=== PATIENT | female | born 1970 | race Caucasian/White ===

== ENCOUNTER → 2017-07-20 | Outpatient (CLI) | payer OTHER ==
[2017-07-20 13:13] LABS: Basophils # (A) 0.1 k/uL (0-0.2); Basophils % (A) 1 %; Eosinophils # (A) 0.1 k/uL (0-0.7); Eosinophils % (A) 1 %; HCT 48.2 % (34.0-46.0); Lymphocytes # (A) 3.1 k/uL (1.0-4.8); Lymphocytes % (A) 30 %; MCHC 33.2 g/dL (31.0-37.0); MCV 90.4 fL (80.0-100.0); Monocytes # (A) 0.4 k/uL (0-1.0); Monocytes % (A) 4 %; Neutrophils # (A) 6.4 k/uL (1.3-7.7); Neutrophils % (A) 62 %; Platelet Count 310 k/uL (150-450); RBC 5.32 m/uL (3.80-5.40); RDW 12.9 % (11.5-15.5); WBC 10.3 k/uL (3.8-10.6)
== END | disposition home or self-care (01) ==
LOC: LABPAT 12:31
PROVIDERS: ATTEND Obstetrics & Gynecology
DX: Z01.818 Encounter for other preprocedural examination (principal); I10 Essential (primary) hypertension; N94.6 Dysmenorrhea, unspecified; N92.0 Excessive and frequent menstruation with regular cycle; Z01.812 Encounter for preprocedural laboratory examination
CPT/HCPCS: 36415; 85025; 93005

== ENCOUNTER 2017-07-26 06:59 | Day surgery (SDC) | payer OTHER ==
[2017-07-20 14:35] VITALS: BMI 35.9
[~2017-07-26 06:59] MED LIST: DEXAMETHASONE SOD PHOSPHATE 10 MG/ML 1 ML VIAL IV ONE; HYDROmorphone 0.5 MG/0.5 ML SYRINGE IVP PRN; LACTATED RINGERS 1,000 ML IV SCH; LIDOCAINE 1% 20 ML VIAL (10MG/ML) FOR IV START INTRADERMA PRN; MIDAZOLAM 2 MG/2 ML VIAL IV PRN; ONDANSETRON 4 MG/2 ML VIAL IVP ONE; SCOPOLAMINE 1.5MG/72HR PATCH TRANSDERM ONE
[2017-07-26 08:01] LABS: Glucose,Whole Blood 353 mg/dL (75-99)
[2017-07-26 08:01] LABS: Glucose,Whole Blood 331 mg/dL (75-99)
[2017-07-26] MEDS ORDERED: INSULIN ASPART 100 UNIT/ML 1 ML 10 ML VIAL SQ ONE ×2 (08:04→09:16)
[2017-07-26] MEDS ORDERED: KETOROLAC 30 MG/ML 1 ML VIAL ONE (08:29)
[2017-07-26] MEDS ORDERED: fentaNYL (PF) 50 MCG/ML 2 ML AMP ONE (08:29)
[2017-07-26] MEDS ORDERED: MIDAZOLAM 2 MG/2 ML VIAL ONE (08:29)
[2017-07-26] MEDS ORDERED: LIDOCAINE 1% INJ 10MG/ML (20 ML MDV) ONE (08:29)
[2017-07-26] MEDS ORDERED: PROPOFOL 10 MG/ML 20 ML VIAL IV ONE (08:29)
--- NOTE | 2017-07-26 08:54 | P.OP ---
Date of Procedure: 07/26/17 Preoperative Diagnosis: Menorrhagia, dysmenorrhea Postoperative Diagnosis: Same, grade 3-4 rectocele. Procedure(s) Performed: Hysteroscopy, NovaSure endometrial ablation Anesthesia: JAYNEA Surgeon: Malissa Lyn Estimated Blood Loss (ml): 5 IV fluids (ml): 400 Urine output (ml): 200 Pathology: none sent Condition: stable Disposition: PACU Description of Procedure: Patient is brought to the operating suite where a general anesthetic is administered without difficulty. She's placed in the dorsal lithotomy position. The cervix, vagina, perineum and periurethral areas are all prepped and draped in usual sterile fashion. Preoperative blood sugar 353, covered with 4 units of NovoLog insulin per the anesthesia staff. Urine hCG negative. The appropriate timeout is performed to assure proper patient and procedural identification. Examination under anesthesia reveals an anteverted uterus that is bulky and enlarged, negative adnexa bilaterally. Weighted speculum was placed into the vagina. Bladder is drained for 200 mL of clear yellow urine. Anterior lip of the cervix is grasped with a double-tooth tenaculum and the uterus sounds to a depth of 10.5 cm. Cervical length 3 cm. There is a grade 3-4 rectocele noted. The cervix was gently and systematically dilated using Hanks dilators to 20- [place]. Hysteroscope was placed and the cavity is distended with saline. Inspection of the cavity reveals bilateral ostia within normal limits, no obvious intrauterine polyps or fibroids, a fair amount of proliferative appearing shaggy tissue is noted. Hysteroscope was removed. NovaSure wand is then properly seated and calibrated. Uterine length of 6.5 cm , width of 4.7 cm is noted. The machine is properly enabled. For 83 seconds with a power of 168 W the procedure is carried out. When the machine shuts off the wand is reduced and removed. Hysteroscope was once again introduced and the cavity is noted to be freely and uniformly blanched. All sponge needle and enhancement counts are correct at the end of the procedure. Patient is brought back to recovery room in very good condition with stable vital signs including blood pressure 147/90, pulse 68. Blood sugar will be checked again in the recovery room. Toradol is given prior to leaving the operative suite. Patient will follow-up with me in the office in 2 weeks, written instructions are provided.
[2017-07-26 09:07] VITALS: TEMP 96.9
[2017-07-26 09:14] LABS: Glucose,Whole Blood 296 mg/dL (75-99)
[2017-07-26 09:46] LABS: Glucose,Whole Blood 290 mg/dL (75-99)
[2017-07-26 10:04] VITALS: PULSE 70
[2017-07-26 10:15] VITALS: BP 136/101; RESP 16
== END 2017-07-26 10:31 | disposition home or self-care (01) ==
LOC: OR 06:59
PROVIDERS: ATTEND Obstetrics & Gynecology
DX: N92.0 Excessive and frequent menstruation with regular cycle (principal); N94.6 Dysmenorrhea, unspecified; N81.6 Rectocele; N94.10 Unspecified dyspareunia; N85.2 Hypertrophy of uterus; E11.9 Type 2 diabetes mellitus without complications; I10 Essential (primary) hypertension; F17.210 Nicotine dependence, cigarettes, uncomplicated; K21.9 Gastro-esophageal reflux disease without esophagitis; Z79.84 Long term (current) use of oral hypoglycemic drugs; Z79.899 Other long term (current) drug therapy; Z83.3 Family history of diabetes mellitus; Z82.49 Family history of ischemic heart disease and other diseases of the circulatory system; Z98.51 Tubal ligation status
CPT/HCPCS: 58563; 81025; J2250; J1100; J2405; J2001; J3010; J1885; J2704

== ENCOUNTER 2018-09-06 14:27 | Observation (INO) | payer OTHER ==
[2018-09-06] MEDS ORDERED: ASPIRIN 81 MG PO STA (14:46)
--- NOTE | 2018-09-06 14:52 | ED ---
General Adult HPI - General Chief complaint: Chest Pain Stated complaint: Cardiac Issues Time Seen by Provider: 09/06/18 14:35 Source: patient, EMS, RN notes reviewed Mode of arrival: EMS Limitations: no limitations - History of Present Illness Initial comments: Patient's a 48-year-old female presented to the emergency room today with a chief complaint of heart palpitations and chest pain. Patient states that over the last month she's been having episodes. She states that she's noticed that it seems to be worse when she is up moving around doing things. His examples that when she went to the grocery store. Also another episode when she was doi ng some laundry. She states that when she has pain she has a sharp pain on the left and right sides. She states she has felt some radiation to the left shoulder and up the left neck. Patient states she is not experiencing any pain at this time. Patient states that she went for a routine follow-up with her family doctor today for elevated blood sugars and was recently started on insulin. She states she was discussing some of the symptoms was advised come here to the emergency room for further evaluation. Patient does admit that the chest pain resolves when she sits down and relax. She denies any other complaints at this time. Patient denies any recent fever, chills, shortness of breath, back pain, abdominal pain, nausea or vomiting, headaches or visual changes, or any other complaints. - Related Data Home Medications Medication Instructions Recorded Confirmed Citalopram Hydrobromide [CeleXA] 40 mg PO QAM 07/20/17 07/26/17 Lisinopril [Zestril] 10 mg PO QAM 07/20/17 07/26/17 Omeprazole 40 mg PO QAM 07/20/17 07/26/17 Aspirin EC [Ecotrin Low Dose] 81 mg PO DAILY 09/06/18 09/06/18 Atorvastatin [Lipitor] 80 mg PO HS 09/06/18 09/06/18 Insulin Glargine,Hum.rec.anlog 22 unit SQ 09/06/18 09/06/18 [Basaglar Kwikpen U-100] sitaGLIPtin PHOS/metFORMIN HCL 1 tab PO BID 09/06/18 09/06/18 [Janumet 50-1,000 mg Tablet] Allergies Allergy/AdvReac Type Severity Reaction Status Date / Time mold Allergy Swelling Verified 09/06/18 16:23 Review of Systems ROS Statement: Those systems with pertinent positive or pertinent negative responses have been documented in the HPI. ROS Other: All systems not noted in ROS Statement are negative. Past Medical History Past Medical History: COPD, Diabetes Mellitus, GERD/Reflux, Hyperlipidemia, Hypertension, Osteoarthritis (OA) Additional Past Medical History / Comment(s): Barretts, NIDDM. History of Any Multi-Drug Resistant Organisms: None Reported Past Surgical History: Section, Cholecystectomy, Tubal Ligation Additional Past Surgical History / Comment(s): Section X2. Past Anesthesia/Blood Transfusion Reactions: Family History of Problems w/ Anesthesia Additional Past Anesthesia/Blood Transfusion Reaction / Comment(s): Mother with PONV. Past Psychological History: Anxiety Smoking Status: Former smoker Past Alcohol Use History: None Reported Past Drug Use History: None Reported - Past Family History Mother Family Medical History: No Reported History General Exam - General Exam Comments Initial Comments: General: The patient is awake and alert, in no distress, and does not appear acutely ill. Eye: There is normal conjunctiva bilaterally. No signs of icterus. Ears, nose, mouth and throat: There are moist mucous membranes and no oral lesions. Neck: The neck is supple, there is no tenderness or JVD. Cardiovascular: There is a regular rate and rhythm. No murmur, rub or gallop is appreciated. Respiratory: Lungs are clear to auscultation, respirations are non-labored, breath sounds are equal. No wheezes, stridor, rales, or rhonchi. Musculoskeletal: Normal ROM, no tenderness. Strength 5/5. Sensation intact. Pulses equal bilaterally 2+. Neurological: A&O x 3. CN II-XII intact, There are no obvious motor or sensory deficits. Coordination appears grossly intact. Speech is normal. Skin: Skin is warm and dry and no rashes or lesions are noted. Psychiatric: Cooperative, appropriate mood & affect, normal judgment. Limitations: no limitations Course Vital Signs 09/06/18 14:29 Temperature 97.6 F Pulse Rate 71 Respiratory 18 Rate Blood Pressure 142/88 O2 Sat by Pulse 96 Oximetry EKG Findings - EKG Comments: EKG Findings:: EKG performed at 1459: Shows normal sinus rhythm at 69 bpm. ID interval 144. QRS 88. QT/QTC 390/417. No acute issue change. Medical Decision Making - Medical Decision Making 48-year-old female presented to the emergency room today with chief complaint of exertional angina. Patient's chest x-rays unremarkable. Resting comfortably at this time. Initial troponin negative. Case discussed with attending physician Dr. Kapoor. Discussed case with with nurse practitioner Dakotah Jones who will accept admission for Dr. Trevino and we will consult cardiology. Patient is aware the plan. - Lab Data Result diagrams: 09/06/18 15:10 09/06/18 15:10 Lab Results 09/06/18 09/06/18 09/06/18 Range/Units 15:10 15:10 15:10 WBC 10.1 (3.8-10.6) k/uL RBC 5.21 (3.80-5.40) m/uL Hgb 15.6 (11.4-16.0) gm/dL Hct 47.4 H (34.0-46.0) % MCV 91.1 (80.0-100.0) fL MCH 29.9 (25.0-35.0) pg MCHC 32.8 (31.0-37.0) g/dL RDW 13.8 (11.5-15.5) % Plt Count 335 (150-450) k/uL Neutrophils % 61 % Lymphocytes % 27 % Monocytes % 6 % Eosinophils % 3 % Basophils % 1 % Neutrophils # 6.1 (1.3-7.7) k/uL Lymphocytes # 2.7 (1.0-4.8) k/uL Monocytes # 0.7 (0-1.0) k/uL Eosinophils # 0.3 (0-0.7) k/uL Basophils # 0.1 (0-0.2) k/uL PT 9.6 (9.0-12.0) sec INR 0.9 (<1.2) APTT 23.7 (22.0-30.0) sec Sodium 138 (137-145) mmol/L Potassium 4.3 (3.5-5.1) mmol/L Chloride 106 (98-107) mmol/L Carbon Dioxide 26 (22-30) mmol/L Anion Gap 6 mmol/L BUN 11 (7-17) mg/dL Creatinine 0.57 (0.52-1.04) mg/dL Est GFR (CKD-EPI)AfAm >90 (>60 ml/min/1.73 sqM) Est GFR (CKD-EPI)NonAf >90 (>60 ml/min/1.73 sqM) Glucose 179 H (74-99) mg/dL Calcium 9.6 (8.4-10.2) mg/dL Magnesium 1.8 (1.6-2.3) mg/dL Total Bilirubin 0.4 (0.2-1.3) mg/dL AST 23 (14-36) U/L ALT 41 (9-52) U/L Alkaline Phosphatase 65 (38-126) U/L Troponin I (0.000-0.034) ng/mL Total Protein 6.9 (6.3-8.2) g/dL Albumin 4.0 (3.5-5.0) g/dL 09/06/18 Range/Units 15:10 WBC (3.8-10.6) k/uL RBC (3.80-5.40) m/uL Hgb (11.4-16.0) gm/dL Hct (34.0-46.0) % MCV (80.0-100.0) fL MCH (25.0-35.0) pg MCHC (31.0-37.0) g/dL RDW (11.5-15.5) % Plt Count (150-450) k/uL Neutrophils % % Lymphocytes % % Monocytes % % Eosinophils % % Basophils % % Neutrophils # (1.3-7.7) k/uL Lymphocytes # (1.0-4.8) k/uL Monocytes # (0-1.0) k/uL Eosinophils # (0-0.7) k/uL Basophils # (0-0.2) k/uL PT (9.0-12.0) sec INR (<1.2) APTT (22.0-30.0) sec Sodium (137-145) mmol/L Potassium (3.5-5.1) mmol/L Chloride (98-107) mmol/L Carbon Dioxide (22-30) mmol/L Anion Gap mmol/L BUN (7-17) mg/dL Creatinine (0.52-1.04) mg/dL Est GFR (CKD-EPI)AfAm (>60 ml/min/1.73 sqM) Est GFR (CKD-EPI)NonAf (>60 ml/min/1.73 sqM) Glucose (74-99) mg/dL Calcium (8.4-10.2) mg/dL Magnesium (1.6-2.3) mg/dL Total Bilirubin (0.2-1.3) mg/dL AST (14-36) U/L ALT (9-52) U/L Alkaline Phosphatase (38-126) U/L Troponin I <0.012 (0.000-0.034) ng/mL Total Protein (6.3-8.2) g/dL Albumin (3.5-5.0) g/dL Critical Care Time Critical Care Time: Yes Total Critical Care Time: 35 Critical Care Time: Patient reexamined at this time showing no signs of distress. She is resting comfortably. Patient's initial troponin is negative. She was given aspirin here in the emergency room. Patient started on heparin. Initial EKG unremarkable. Patient will be admitted for serial cardiac enzymes and cardiology has been consulted. Disposition Clinical Impression: Chest pain Disposition: HOME SELF-CARE Condition: Good Is patient prescribed a controlled substance at d/c from ED?: No Referrals: Marni Hearn MD [Primary Care Provider] - 1-2 days Time of Disposition: 16:39
[2018-09-06 15:33] LABS: Basophils # (A) 0.1 k/uL (0-0.2); Basophils % (A) 1 %; Eosinophils # (A) 0.3 k/uL (0-0.7); Eosinophils % (A) 3 %; HCT 47.4 % (34.0-46.0); HGB 15.6 gm/dL (11.4-16.0); Lymphocytes # (A) 2.7 k/uL (1.0-4.8); Lymphocytes % (A) 27 %; MCH 29.9 pg (25.0-35.0); MCHC 32.8 g/dL (31.0-37.0); MCV 91.1 fL (80.0-100.0); Mean Platelet Volume 6.3; Monocytes # (A) 0.7 k/uL (0-1.0); Monocytes % (A) 6 %; Neutrophils # (A) 6.1 k/uL (1.3-7.7); Neutrophils % (A) 61 %; Platelet Count 335 k/uL (150-450); RBC 5.21 m/uL (3.80-5.40); RDW 13.8 % (11.5-15.5); WBC 10.1 k/uL (3.8-10.6)
[2018-09-06 15:34] LABS: ALT 41 U/L (9-52); AST 23 U/L (14-36); Alkaline Phosphatase 65 U/L (38-126); Anion Gap 6 mmol/L; Blood Urea Nitrogen 11 mg/dL (7-17); Calcium 9.6 mg/dL (8.4-10.2); Carbon Dioxide 26 mmol/L (22-30); Chloride 106 mmol/L (98-107); Glucose 179 mg/dL (74-99); Magnesium 1.8 mg/dL (1.6-2.3); Potassium 4.3 mmol/L (3.5-5.1); Sodium 138 mmol/L (137-145); Total Bilirubin 0.4 mg/dL (0.2-1.3); Total Protein 6.9 g/dL (6.3-8.2)
[2018-09-06 15:38] LABS: INR 0.9 (<1.2); Partial Thromboplastin Time 23.7 sec (22.0-30.0); Prothrombin Time 9.6 sec (9.0-12.0)
--- NOTE | 2018-09-06 15:48 | XR ---
EXAMINATION TYPE: XR chest 2V DATE OF EXAM: 09/06/2018 COMPARISON: NONE HISTORY: Chest pain and pressure TECHNIQUE: Frontal and lateral views of the chest are obtained. FINDINGS: There is no focal air space opacity, pleural effusion, or pneumothorax seen. The cardiac silhouette size is within normal limits. The osseous structures are intact. IMPRESSION: No acute cardiopulmonary process.
[2018-09-06] MEDS ORDERED: SODIUM CHLORIDE 0.9% 1,000 ML IV ONE (16:26)
[2018-09-06] MEDS ORDERED: HEPARIN SODIUM,PORCINE 5,000 UNIT/ML 1 ML VIAL IV ONE (16:26)
[2018-09-06] MEDS ORDERED: NITROGLYCERIN SL TABS 0.4 MG TAB SUBLINGUAL PRN (16:26)
[2018-09-06] MEDS ORDERED: HEPARIN SOD,PORK IN 0.45% NACL 25,000 UNIT in 0.45% NACL 1 250ML.BAG IV SCH (16:30)
[2018-09-06 21:55] LABS: Glucose,Whole Blood 152 mg/dL (75-99)
[2018-09-07] MEDS ORDERED: ATORVASTATIN 80 MG TAB PO SCH (00:15)
[2018-09-07] MEDS: NON-FORMULARY DRUG (Sitagliptin Phos/Metformin Hcl [Janumet 50-1,000 Mg Tablet] 1 TAB) PO SCH ×3 (01:15→21:41)
[2018-09-07] MEDS: INSULIN DETEMIR (LEVEMIR) 100 UNIT/ML SYR SQ SCH ×2 (01:17→21:40)
[2018-09-07 03:15] LABS: Cholesterol 132 mg/dL (<200); HDL Cholesterol 28 mg/dL (40-60); LDL Cholesterol,Calculated 75 mg/dL (0-99); Triglycerides 143 mg/dL (<150)
[2018-09-07 06:49] LABS: Glucose,Whole Blood 127 mg/dL (75-99)
[2018-09-07] MEDS ORDERED: ASPIRIN 325 MG TAB PO SCH (09:00)
[2018-09-07] MEDS ORDERED: ALPRAZolam 0.5 MG TAB PO PRN (09:53)
[2018-09-07] MEDS ORDERED: NITROGLYCERIN SL TABS 0.4 MG TAB SUBLINGUAL PRN (09:53)
[2018-09-07] MEDS ORDERED: ALPRAZolam 0.25 MG TAB PO PRN (09:53)
[2018-09-07] MEDS ORDERED: SODIUM CHLORIDE 0.9% 1,000 ML in EMPTY BAG 1 BAG IV ONE (09:53)
[2018-09-07] MEDS ORDERED: ASPIRIN 325 MG TAB PO STA (09:57)
[2018-09-07] MEDS ORDERED: ATORVASTATIN 80 MG TAB PO STA (09:57)
[2018-09-07] MEDS: CITALOPRAM HYDROBROMIDE 20 MG TAB PO SCH (10:22)
--- NOTE | 2018-09-07 11:03 | CONS ---
CONSULTATION Mrs. Mills is a 48-year-old female who is seen in the emergency room. This patient gives a history that she has been having some discomfort in the chest, which is diffuse across the chest and up to the neck, comes and goes for last couple of weeks. The patient went to the grocery store yesterday where she had an episode of chest discomfort and subsided. The pain is diffuse across the chest. It is not associated with any shortness of breath, nausea or vomiting. The patient went to her family doctor and because of her chest discomfort, patient was advised to come over here. Patient does have a strong family history of coronary artery disease, history of hyperlipidemia and as well as history of diabetes. PAST MEDICAL HISTORY: Past medical history includes history of cholecystectomy, history of diabetes, COPD, hypertension, hyperlipidemia. FAMILY HISTORY: Patient's brother had a heart attack. SOCIAL HISTORY: Patient is a former smoker. HOME MEDICATIONS: Patient's home medications include Janumet, insulin, Lipitor 80 mg daily, omeprazole, Zestril 10 mg daily, and Celexa once a day. PHYSICAL EXAMINATION: Physical examination at present reveals a 48-year-old female who does not appear to be in any acute distress. The patient's vital signs were stable in the emergency room. Her blood pressure is 114/78 mmHg. HEENT examination is negative. Neck is supple. There is no increase in jugular venous pressure. Both the carotid pulses are felt. There is no bruit. Chest is symmetrical. HEART: The PMI is not felt. First and second heart sounds are normal. There is no evidence of any murmur. Lungs are clinically clear to auscultation and percussion. Abdomen is soft. Liver and spleen are not enlarged. Bowel sounds are heard. EXTREMITIES: Peripheral pulsations are 2+. EKG shows normal sinus rhythm without any acute ischemic changes. FINAL IMPRESSION: This patient has been having a recent onset of chest discomfort occurring at rest and with activity suggestive of unstable angina. Patient's EKGs and cardiac enzymes are negative. However, patient has multiple risk factors with a history of diabetes, hyperlipidemia, strong family history and history of smoking. Patient is advised further evaluation with a cardiac catheterization for definitive diagnosis. Procedure and the risks were fully discussed with the patient and she would like to proceed with it. MMODL / IJN: [id number] /
[2018-09-07 11:50] LABS: Glucose,Whole Blood 100 mg/dL (75-99)
[2018-09-07] MEDS ORDERED: SODIUM CHLORIDE 0.9% 1,000 ML IV ONE (13:50)
[2018-09-07] MEDS ORDERED: LIDOCAINE 1% INJ 10MG/ML (20 ML MDV) SQ ONE ×2 (14:00→14:09)
[2018-09-07] MEDS ORDERED: fentaNYL (PF) 50 MCG/ML 2 ML AMP ONE (14:04)
[2018-09-07] MEDS ORDERED: MIDAZOLAM 2 MG/2 ML VIAL IVP ONE (14:07)
[2018-09-07] MEDS ORDERED: fentaNYL (PF) 50 MCG/ML 2 ML AMP IVP ONE (14:07)
[2018-09-07] MEDS ORDERED: IOPAMIDOL-370 125ML BTL INJ ONE (14:42)
--- NOTE | 2018-09-07 14:47 | P.HPIM ---
History of Present Illness H&P Date: 09/07/18 Chief Complaint: Chest pain Patient is a 48 old female with a known history of hypertension, diabetes type 2, GERD, hyperlipidemia, osteoarthritis and history of Cox's esophagus came to ER with the complaints of chest pain mainly left retrosternal, squeezing type. Patient initially went to see his primary care physician and was referred to ER. Patient initially presented to PCP's office due to elevated blood sugars at home. Patient was started on insulin. Patient patient told her physician that she has been having chest pain for the past one 1 month on and off lasting about 10-15 minutes. Sometimes pain is associated with also work and doing laundry as well. Yesterday patient developed chest pain associated with sweating and mild shortness of breath. No nausea no vomiting. No headache or dizziness or lightheadedness. No leg swelling. Patient also felt some heart beating of fast. Patient says that it is similar to her angina like pain a few years ago. No fever no chills. No recent illnesses. Patient says that she has a family history of coronary disease and diabetes. EKG showed normal sinus rhythm. Chest x-ray showed no acute cardiopulmonary process. Troponin 2 negative Review of Systems Constitutional: Patient denies any fever or chills . No generalized weakness or weight loss. Abdomen: Patient denied nausea vomiting and diarrhea and abdominal pain. Cardiovascular: Patient denies any chest pain or short of breath no palpitations. Respiratory: patient denied any cough is from production. No shortness of breath Neurologic: Patient denied any numbness or tingling headache. Musculoskeletal: Patient denies any complaints of joint swelling or deformity. Skin: Negative Psychiatric: Negative Endocrine: No heat or cold intolerance. No recent weight gain. Genitourinary: No dysuria or hematuria. All other 14 point ROS negative except the above Past Medical History Past Medical History: Diabetes Mellitus, GERD/Reflux, Hyperlipidemia, Hypertension, Osteoarthritis (OA) Additional Past Medical History / Comment(s): Barretts, DM. History of Any Multi-Drug Resistant Organisms: None Reported Past Surgical History: Section, Cholecystectomy, Tubal Ligation Additional Past Surgical History / Comment(s): Section X2. Past Anesthesia/Blood Transfusion Reactions: Family History of Problems w/ Anesthesia Additional Past Anesthesia/Blood Transfusion Reaction / Comment(s): Mother with PONV. Past Psychological History: Anxiety Smoking Status: Former smoker Past Alcohol Use History: None Reported Additional Past Alcohol Use History / Comment(s): . Past Drug Use History: None Reported - Past Family History Mother History Unknown: Yes Family Medical History: Hypertension, Myocardial Infarction ([place]) Father History Unknown: Yes Family Medical History: Myocardial Infarction ([place]) Brother(s) History Unknown: Yes Family Medical History: Myocardial Infarction ([place]) Medications and Allergies Home Medications Medication Instructions Recorded Confirmed Type Citalopram Hydrobromide [CeleXA] 40 mg PO DAILY 07/20/17 09/06/18 History Lisinopril [Zestril] 10 mg PO DAILY 07/20/17 09/06/18 History Omeprazole 40 mg PO DAILY 07/20/17 09/06/18 History Aspirin EC [Ecotrin Low Dose] 81 mg PO DAILY 09/06/18 09/06/18 History Atorvastatin [Lipitor] 80 mg PO HS 09/06/18 09/06/18 History Insulin Glargine,Hum.rec.anlog 22 unit SQ HS 09/06/18 09/06/18 History [Basaglar Kwikpen U-100] sitaGLIPtin PHOS/metFORMIN HCL 1 tab PO BID 09/06/18 09/06/18 History [Janumet 50-1,000 mg Tablet] Allergies Allergy/AdvReac Type Severity Reaction Status Date / Time mold Allergy Swelling Verified 09/06/18 19:53 Physical Exam Vitals: Vital Signs Temp Pulse Pulse Resp BP BP Pulse Ox 09/07/18 07:51 98.1 F 61 18 114/78 96 09/07/18 04:44 97.5 F L 67 18 132/76 97 09/07/18 03:51 67 17 09/07/18 00:00 97.5 F L 69 16 142/72 97 09/06/18 20:37 97.5 F L 67 18 134/86 97 09/06/18 20:30 17 09/06/18 20:00 17 09/06/18 18:55 17 09/06/18 18:40 64 18 142/95 95 09/06/18 18:30 66 140/97 09/06/18 17:30 66 106/73 09/06/18 17:00 60 115/72 09/06/18 16:30 64 128/92 09/06/18 16:00 65 143/90 09/06/18 15:30 75 127/79 09/06/18 15:00 71 132/92 09/06/18 14:30 76 142/88 09/06/18 14:29 97.6 F 71 18 142/88 96 Intake and Output 09/06/18 09/07/18 09/07/18 22:59 06:59 14:59 Intake Total 110.246 Output Total 1 1 Balance -1 109.246 Intake: Intake, IV Titration 110.246 Amount Heparin Sod,Pork in 0.45% 110.246 NaCl 25,000 unit In 0.45 % NaCl 1 250ml.bag @ 9.4 UNITS/KG/HR 9.977 mls/hr IV .Q24H [facility] Rx#: [id number] Output: Urine 1 1 Other: Voiding Method Toilet Toilet Toilet # Voids 1 1 PHYSICAL EXAMINATION: Patient is lying in the bed comfortably, no acute distress, awake alert and oriented.. HEENT: Normocephalic. Neck is supple. Pupils reactive. Nostrils clear. Oral cavity is moist. Ears reveal no drainage. Neck reveals no JVD, carotid bruits, or thyromegaly. CHEST EXAMINATION: Trachea is central. Symmetrical expansion. Lung orozco clear to auscultation and percussion. CARDIAC: Normal S1, S2 with no gallops. No murmurs ABDOMEN: Soft. Bowel sounds normal. No organomegaly. No abdominal bruits. Extremities: reveal no edema. No clubbing or cyanosis Neurologically awake, alert, oriented x3 with well-coordinated movements. No focal deficits noted Skin: No rash or skin lesions. Psychiatric: Coperative. Nonsuicidal Musculoskeletal: No joint swelling or deformity. Normal range of motion. Results CBC & Chem 7: 09/06/18 15:10 09/06/18 15:10 Labs: Abnormal Lab Results - Last 24 Hours (Table) 09/06/18 09/06/18 09/06/18 Range/Units 15:10 15:10 21:54 Hct 47.4 H (34.0-46.0) % Glucose 179 H (74-99) mg/dL POC Glucose (mg/dL) 152 H (75-99) mg/dL HDL Cholesterol (40-60) mg/dL 09/07/18 09/07/18 09/07/18 Range/Units 02:27 06:48 11:49 Hct (34.0-46.0) % Glucose (74-99) mg/dL POC Glucose (mg/dL) 127 H 100 H (75-99) mg/dL HDL Cholesterol 28 L (40-60) mg/dL Thrombosis Risk Factor Assmnt - DVT/VTE Prophylaxis DVT/VTE Prophylaxis: Pharmacologic Prophylaxis ordered - Choose All That Apply Each Factor Represents 1 point: Age 41-60 years, Obesity (BMI >25) Other Risk Factors: No Other congenital or acquired thrombophilia - If yes, enter type in comment: No Thrombosis Risk Factor Assessment Total Risk Factor Score: 2 Thrombosis Risk Factor Assessment Level: Low Risk Assessment and Plan Assessment: Chest pain. Possible unstable angina Hypertension Diabetes type 2. Recently started on insulin. Hyperlipidemia History of smoking quit in June 2018 Morbid obesity BMI 35.6 GERD Family history of sudden cardiac and diabetes DVT prophylaxis Plan: Patient be continued on telemetry monitoring. EKG and troponin 3 negative. Cardiology is planning for cardiac catheterization for definitive diagnosis. Continue with PPI. Continue the insulin dosing and home medications. Further recommendations based on the clinical course. Time with Patient: Greater than 30
[2018-09-07] MEDS ORDERED: RX INFO: IV CONTRAST WAS GIVEN 1 EACH MISC MISCELLANE PRN (15:02)
[2018-09-07 16:56] LABS: Glucose,Whole Blood 111 mg/dL (75-99)
--- NOTE | 2018-09-07 17:12 | CC ---
CARDIAC CATHETERIZATION REPORT Mrs. Mills was admitted with symptoms of recent onset of chest pain, frequently occurring at rest, suggestive of unstable angina syndrome. In view of that, the patient was recommended to have a cardiac catheterization for definitive diagnosis. PROCEDURE: The right groin was prepped and draped in the usual manner and the skin was infiltrated with 2% Xylocaine. The right femoral artery was entered using Seldinger technique and under ultrasound guidance with micropuncture needle. Selective coronary angiography was then performed in multiple projections and left ventricular pressures were obtained. Sheath was removed and good hemostasis was achieved with the use of Angio- Seal. SEDATION: Moderate sedation was used. Total sedation time was 25 minutes. HEMODYNAMICS: Left ventricular end-diastolic pressure was 10 mmHg prior to angiography. No gradient was noted across the aortic valve. SELECTIVE CORONARY ANGIOGRAPHY: Left main coronary artery is normal and patent. LAD is a good-caliber blood vessel and gives rise to a good-sized diagonal branch. LAD and its branches are normal. Circumflex coronary artery is codominant in distribution, gives rise to obtuse marginal branch. Circumflex coronary artery is normal. Right coronary artery is dominant in distribution and gives rise to PDA and PLV branches. Right coronary artery and its branches are normal. FINAL IMPRESSION: This study reveals normal coronary arteries. Left ventricular end-diastolic pressure is normal. RECOMMENDATIONS: Medical treatment. MMODL / IJN: [id number] /
[2018-09-07 20:27] LABS: Glucose,Whole Blood 130 mg/dL (75-99)
[2018-09-08 06:57] LABS: Glucose,Whole Blood 157 mg/dL (75-99)
[2018-09-08 07:52] VITALS: BP 149/92; PULSE 63; RESP 18; TEMP 98.7
[2018-09-08] MEDS: CITALOPRAM HYDROBROMIDE 20 MG TAB PO SCH (07:55)
[2018-09-08] MEDS: NON-FORMULARY DRUG (Sitagliptin Phos/Metformin Hcl [Janumet 50-1,000 Mg Tablet] 1 TAB) PO SCH (07:59)
[2018-09-08] MEDS ORDERED: LISINOPRIL 10 MG TAB PO SCH (09:00)
[2018-09-08] MEDS ORDERED: PANTOPRAZOLE 40 MG TABLET PO SCH (09:00)
[2018-09-08] MEDS ORDERED: NON-FORMULARY DRUG (Aspirin Ec 81 MG) PO SCH (09:00)
[2018-09-08] MEDS ORDERED: ASPIRIN 325 MG TAB PO SCH (09:00)
[2018-09-08 11:50] LABS: Glucose,Whole Blood 140 mg/dL (75-99)
--- NOTE | 2018-09-08 14:07 | P.PN ---
Subjective This is a pleasant 48-year-old female past medical history significant for diabetes mellitus, hypertension, dyslipidemia, parents esophagus and gastroesophageal reflux disease. She is seen and examined resting comfortably in her room and frequently walking up and down the halls. She denies symptoms of chest discomfort, shortness of breath, dizziness or palpitations. Right groin is soft, nontender, no hematoma, no bleeding and no ecchymosis. Blood pressure 149/92 heart rate 63 afebrile maintaining oxygen saturation on room air. GENERAL: Well-appearing, well-nourished and in no acute distress. NECK: Supple without JVD or thyromegaly. LUNGS: Breath sounds clear to auscultation bilaterally. Respiration equal and unlabored. No wheezes, rales or rhonchi. HEART: Regular rate and rhythm without murmurs, rubs or gallops. S1 and S2 heard. EXTREMITIES: Normal range of motion, no edema. No clubbing or cyanosis. Peripheral pulses intact. Right groin soft, nontender, no hematoma, no bleeding and no ecchymosis. Strong distal pulses. ASSESSMENT Chest discomfort. Cardiac catheterization performed is no evidence of obstructive coronary artery disease. Hypertension Dyslipidemia Diabetes mellitus PLAN Stable from a cardiac perspective. Resume all medications as previously ordered. Follow-up with Dr. Obrien in one week. Nurse Practitioner note has been reviewed, I agree with a documented findings and plan of care. Patient was seen and examined. Objective - Vital Signs Vital signs: Vital Signs Temp 98.7 F 09/08/18 07:51 Pulse 63 09/08/18 07:51 Resp 18 09/08/18 07:51 BP 149/92 09/08/18 07:51 Pulse Ox 95 09/08/18 07:51 Intake & Output 09/07/18 09/08/18 09/08/18 18:59 06:59 18:59 Intake Total 640 Output Total 1 Balance 640 -1 Intake: IV 200 Oral 440 Output: Urine 1 Other: Voiding Method Toilet Toilet Toilet # Voids 1 1 - Labs CBC & Chem 7: 09/06/18 15:10 09/06/18 15:10 Labs: Abnormal Lab Results - Last 24 Hours (Table) 09/07/18 09/07/18 09/08/18 Range/Units 16:54 20:20 06:48 POC Glucose (mg/dL) 111 H 130 H 157 H (75-99) mg/dL 09/08/18 Range/Units 11:49 POC Glucose (mg/dL) 140 H (75-99) mg/dL
[2018-09-08] MEDS ORDERED: ATORVASTATIN 80 MG TAB PO SCH (21:00)
== END 2018-09-08 12:17 | disposition home or self-care (01) ==
LOC: EC 14:27 → 1SOBS 16:17
PROVIDERS: ADMIT Internal Medicine; ATTEND Internal Medicine
DX: R07.89 Other chest pain (principal); R06.02 Shortness of breath; R61 Generalized hyperhidrosis; E11.65 Type 2 diabetes mellitus with hyperglycemia; J44.9 Chronic obstructive pulmonary disease, unspecified; Z68.35 Body mass index [BMI] 35.0-35.9, adult; E66.01 Morbid (severe) obesity due to excess calories; K21.9 Gastro-esophageal reflux disease without esophagitis; K22.70 Barrett's esophagus without dysplasia; F41.9 Anxiety disorder, unspecified; E78.5 Hyperlipidemia, unspecified; I10 Essential (primary) hypertension; M19.90 Unspecified osteoarthritis, unspecified site; Z79.899 Other long term (current) drug therapy; Z79.82 Long term (current) use of aspirin; Z79.4 Long term (current) use of insulin; Z91.048 Other nonmedicinal substance allergy status; Z90.49 Acquired absence of other specified parts of digestive tract; Z87.891 Personal history of nicotine dependence; Z82.49 Family history of ischemic heart disease and other diseases of the circulatory system; Z82.41 Family history of sudden cardiac death
CPT/HCPCS: 96366 ×2; 96376; 96365; 99291; 36415; 93005; 93458; 80061; 80053; 83735; 84484 ×2; 85025; 85610; 85730 ×2; 71046; G0378 ×3; C1760; C1894; C1769 ×2; J2250; J1644 ×2; J2001; J3010; Q9967

== ENCOUNTER → 2019-06-27 | Outpatient (CLI) | payer OTHER ==
[2019-06-27 13:41] LABS: African American GFR (CKD) >90 (>60 ml/min/1.73 sqM); Anion Gap 9 mmol/L; Basophils # (A) 0.1 k/uL (0-0.2); Basophils % (A) 1 %; Blood Urea Nitrogen 10 mg/dL (7-17); Carbon Dioxide 25 mmol/L (22-30); Chloride 104 mmol/L (98-107); Eosinophils # (A) 0.2 k/uL (0-0.7); Eosinophils % (A) 2 %; Glucose 199 mg/dL (74-99); HGB 17.1 gm/dL (11.4-16.0); Lymphocytes # (A) 3.4 k/uL (1.0-4.8); Lymphocytes % (A) 30 %; MCH 30.4 pg (25.0-35.0); MCHC 33.5 g/dL (31.0-37.0); MCV 90.9 fL (80.0-100.0); Mean Platelet Volume 7.6; Monocytes # (A) 0.5 k/uL (0-1.0); Monocytes % (A) 4 %; Neutrophils # (A) 6.9 k/uL (1.3-7.7); Neutrophils % (A) 60 %; Non-African American GFR(CKD) >90 (>60 ml/min/1.73 sqM); Platelet Count 364 k/uL (150-450); Potassium 4.7 mmol/L (3.5-5.1); RBC 5.61 m/uL (3.80-5.40); RDW 13.8 % (11.5-15.5); Sodium 138 mmol/L (137-145); WBC 11.5 k/uL (3.8-10.6)
== END | disposition home or self-care (01) ==
LOC: LABPAT 12:54
PROVIDERS: ATTEND Obstetrics & Gynecology
DX: Z01.812 Encounter for preprocedural laboratory examination (principal)
CPT/HCPCS: 36415; 80048; 85025

== ENCOUNTER 2019-07-06 07:27 | Observation (INO) | payer OTHER ==
[2019-06-28 16:16] VITALS: BMI 35.7
[~2019-07-06 07:27] MED LIST changes: -LACTATED RINGERS 1,000 ML IV SCH; -LIDOCAINE 1% 20 ML VIAL (10MG/ML) FOR IV START INTRADERMA PRN
[2019-07-06 08:20] LABS: Glucose,Whole Blood 163 mg/dL (75-99)
[2019-07-06] MEDS: LACTATED RINGERS 1,000 ML IV SCH ×2 (08:24→18:13)
--- NOTE | 2019-07-06 08:40 | P.HPOB ---
History of Present Illness H&P Date: 07/06/19 Chief Complaint: Dysfunctional uterine bleeding/fibroid uterus Ana is a 49-year-old female with heavy vaginal bleeding. She underwent a NovaSure ablation in August 2018 but despite this, has had continued heavy vaginal bleeding changing pads every 2 hours when she is on her cycle and having severe debilitating cramping as well. Ultrasound done recently showed a 3 cm fibroid as well. She is scheduled for a robotic-assisted laparoscopic hysterectomy possible RAMON possible BSO. Risks/benefits/returns were reviewed with patient in detail and did include but were not limited to bleeding and infection, damage to bladder or bowel/vessels/nerves/potential need further surg elisa. Anesthetic risks. She has a history of section 2 so depending on the scarring this will increase her risk for bladder injury as well as potential need for conversion to open. She also is a diabetic and will plan to have her medicine physician consultation postoperatively to help with her sugar control. Past Medical History Past Medical History: Diabetes Mellitus, GERD/Reflux, Hyperlipidemia, Hypertension, Osteoarthritis (OA) Additional Past Medical History / Comment(s): Cox"s DISEASE , History of Any Multi-Drug Resistant Organisms: None Reported Past Surgical History: Section, Cholecystectomy, Heart Catheterization, Tubal Ligation, Uterine Ablation Additional Past Surgical History / Comment(s): Section X2. Past Anesthesia/Blood Transfusion Reactions: Family History of Problems w/ Ane sthesia Additional Past Anesthesia/Blood Transfusion Reaction / Comment(s): Mother with PONV. Smoking Status: Current every day smoker - Past Family History Mother History Unknown: Yes Family Medical History: AFIB Father History Unknown: Yes Family Medical History: Myocardial Infarction ([place]) Brother(s) History Unknown: Yes Family Medical History: Myocardial Infarction ([place]) Medications and Allergies Home Medications Medication Instructions Recorded Confirmed Type Citalopram Hydrobromide [CeleXA] 40 mg PO DAILY 07/20/17 07/06/19 History Lisinopril [Zestril] 10 mg PO DAILY 07/20/17 07/06/19 History Omeprazole 40 mg PO DAILY 07/20/17 07/06/19 History Aspirin EC [Ecotrin Low Dose] 81 mg PO DAILY 09/06/18 06/28/19 History Atorvastatin [Lipitor] 80 mg PO HS 09/06/18 07/06/19 History Insulin Glargine,Hum.rec.anlog 22 unit SQ HS PRN 09/06/18 07/06/19 History [Shaneaglsugar Rodrigeskev U-100] sitaGLIPtin PHOS/metFORMIN HCL 1 tab PO BID 09/06/18 07/06/19 History [Janumet 50-1,000 mg Tablet] Cholecalciferol (Vitamin D3) 2,000 unit PO DAILY 06/28/19 06/28/19 History [Vitamin D3] Ertugliflozin Pidolate [Steglatro] 15 mg PO DAILY 06/28/19 07/06/19 History [place]-3 Fatty Acids/Fish Oil [Fish 1 each PO DAILY 06/28/19 06/28/19 History Oil 1,000 mg Softgel] Nicotine 21Mg/24Hr Patch [Habitrol] 21 mg TRANSDERM DAILY 07/06/19 07/06/19 History Allergies Allergy/AdvReac Type Severity Reaction Status Date / Time mold Allergy SNEEZING,COUGHING, Verified 07/06/19 08:21 ITCHY EYES Exam Osteopathic Statement: *. No significant issues noted on an osteopathic structural exam other than those noted in the History and Physical/Consult. Vital Signs Temp Pulse Resp BP Pulse Ox 07/06/19 07:55 98.4 F 73 16 136/87 97 Intake and Output 07/05/19 07/06/19 07/06/19 22:59 06:59 14:59 Other: Weight 107.8 kg - OBG Physical Exam Breast: both: normal (no masses) Abdomen: bowel sounds normal, no diffuse tenderness, no bruit present, no guarding noted, no hepatomegaly, no splenomegaly, no mass Vulva: both: normal Vagina: normal moisture, no discharge Cervix: no lesion, no discharge Uterus: normal size, normal contour Adnexa: both: normal Anus/Rectum: normal perianal skin, no rectal mass, no hemorrhoids, heme negative Results Abnormal Lab Results - Last 24 Hours (Table) 07/06/19 Range/Units 08:12 POC Glucose (mg/dL) 163 H (75-99) mg/dL
[2019-07-06] MEDS ORDERED: SUCCINYLCHOLINE CHLORIDE 100 MG/5 ML SYR IV ONE (09:24)
[2019-07-06] MEDS ORDERED: fentaNYL (PF) 50 MCG/ML 2 ML AMP ONE (09:24)
[2019-07-06] MEDS ORDERED: NEOSTIGMINE 1 MG/ML 10 ML VIAL ONE (09:24)
[2019-07-06] MEDS ORDERED: ROCURONIUM BROMIDE 10 MG/ML 10 ML VIAL IV ONE (09:24)
[2019-07-06] MEDS ORDERED: PROPOFOL 10 MG/ML 20 ML VIAL IV ONE (09:24)
[2019-07-06] MEDS ORDERED: HYDROmorphone (PF) 1 MG/ML ONE (09:24)
[2019-07-06] MEDS ORDERED: GLYCOPYRROLATE 0.2 MG/ML 2 ML VIAL ONE (09:24)
[2019-07-06] MEDS ORDERED: LIDOCAINE 1% INJ 10MG/ML (20 ML MDV) ONE (09:24)
[2019-07-06] MEDS ORDERED: KETOROLAC 30 MG/ML 1 ML VIAL ONE (09:24)
[2019-07-06] MEDS ORDERED: MIDAZOLAM 2 MG/2 ML VIAL ONE (09:24)
[2019-07-06] MEDS ORDERED: BUPIVACAINE (PF) 0.25% 30 ML VIAL SQ ONE (09:55)
[2019-07-06] MEDS ORDERED: ONDANSETRON 4 MG/2 ML VIAL IVP PRN (11:19)
[2019-07-06] MEDS ORDERED: HYDROcodone/APAP 7.5-325MG 1 EACH TAB PO PRN (11:21)
--- NOTE | 2019-07-06 11:30 | P.OP ---
Date of Procedure: 07/06/19 Preoperative Diagnosis: Dysfunctional uterine bleeding: Failed NovaSure Postoperative Diagnosis: Same with adhesions and left ovarian cysts Procedure(s) Performed: Robotic-assisted laparoscopic hysterectomy with left salpingectomy and cystotomy of left ovarian cyst. Also adhesio lysis Anesthesia: BLAKE Surgeon: Damon Mcfarlane Senior Data Quality Analyst #1: Aniya Soria Estimated Blood Loss (ml): 50 IV fluids (ml): 1,000 Urine output (ml): 200 Pathology: other (Uterus and cervix and left fallopian tube) Condition: stable Disposition: floor Operative Findings: Significant adhesions were noted along the anterior uterine wall with the omentum essentially blocking out the vast majority of the intra-abdominal wall. There is also significant adhesions of the left fallopian tube to the sidewall as well as pelvic sidewall adhesions to the right adnexal region. Description of Procedure: Patient was taken to the operating suite where a general anesthetic was found to be adequate. She was prepped and draped in the normal sterile fashion and placed in dorsal lithotomy position. Initially a weighted speculum was inserted into the vagina and the anterior lip of the cervix was identified and grasped with a single-tooth tenaculum. Cervix was then dilated and a V care manipulator was inserted without difficulty. Hutchinson catheter was then placed and vaginal instruments were removed. Gloves were changed. Attention was turned to the abdominal portion procedure where 2 mL of quarter percent Marcaine was injected 1 cm above the umbilicus. Through this injected anesthetic a 5 mm skin incision was made and through this incision, under direct visualization, the trocar and sleeve were inserted without difficulty. Once this was placed omental adhesions were noted all along the anterior abdominal wall. There were in such a position that was difficult to manipulate to remove. Therefore first a incision was made 10 cm lateral to the umbilicus through an 8 mm skin incision and a da Dima port and sleeve were inserted. Then similar incision was made on the left and a fourth port and sleeve was inserted between the left lateral and medial ports through a 1 cm incision. Once this was completed attempts at blunt dissection of the omental adhesion were done but it was in such a position and so high that it was if culture really reduce much. Therefore robot was brought in and do cked. At this point I broke scrub and went to the console with a scissor and the one arm and a [place] grasper in the 2 arm. Rotating the camera superiorly and was able to identify the omental adhesion and grasping it with a [place] I was able to incise with the scissor to pull the lesion back enough that I was able to visualize uterus and adnexa clearly and was enough room that we will be able to do the surgery. At this point uterus was elevated and tipped to the right side and the right fallopian tube was excised by grasping below it cauterizing it and then cutting it free. It was then sent to pathology. Utero- ovarian ligament was then identified and left side cauterized and transected. Moving through the mesosalpinx tissues to the round ligament tissues cauterized and transected. Remley was then transected and cauterized and then a scalpel station of the vascularity on the left side was developed. Vessels were then cauterized. Bladder flap was then identified and entered with Maryland and then dissected by undermining the bladder flap with Maryland and incising across the face uterus. Significant adhesions were noted through this process. Then the bladder was bluntly dissected out of the operative field. Once this was completed the right adnexa was completely stuck to the pelvic sidewall there was some filmy and thicker adhesions that were noted and were dissected by incising and cauterizing across the anterior abdominal wall to bring the tissues down to free up the adnexal region. The fallopian tube was completely encased in this and was therefore left in situ. We were able to with gentle traction and dissection free the left ovary from the abdominal sidewall and then once this was completed again in a similar fashion to the left side the right side of the uterus was developed. Once this was completed vascular was cauterized on both the right and left-hand sides and the uterus was then pushed all the way in an retroverted. We were able to identify the cup through the vaginal mucosa and it was then incised. The care cup was identified and then moving in a counterclockwise fashion cheating head when A[place]ley necessary to maintain hemostasis the cup was followed 360 until the uterus was from the vagina. Once this was completed the uterus was brought down into the vagina to maintain pneumoperitoneum. Verifying good hemostasis on all pedicles and then incising 2 small ovarian cysts on the left ovary to drain them the incidents were then exchanged for a make suture cut and a cardia grasper. Using a to OB lock suture the vaginal cuff was then closed in a running fashion. Once this was completed pelvis was irrigated and again verification of hemostasis was made. All instruments were then removed and gas was allowed to expel from the abdomen with 5 deep breaths provided during this process. At this point robot was undocked and removed from the operative field and Dr. Soria close the incision subcuticularly. I also scrubbed back in and did a cystoscopy with excellent flow noted from both ureteral jets. Sponge, lap, needle counts were all correct 2. Patient was then taken to the recovery room in stable and sati sfactory condition. Patient did tolerate surgery very well.
[2019-07-06 11:41] LABS: Glucose,Whole Blood 206 mg/dL (75-99)
[2019-07-06] MEDS ORDERED: INSULIN ASPART (NovoLOG) 100 UNIT/ML VIAL SQ ONE (11:46)
[2019-07-06] MEDS: KETOROLAC 30 MG/ML 1 ML VIAL IVP PRN ×2 (15:51→23:18)
[2019-07-06 17:08] LABS: Glucose,Whole Blood 266 mg/dL (75-99)
[2019-07-06] MEDS ORDERED: INSULIN DETEMIR (LEVEMIR) 100 UNIT/ML SYR SQ PRN (17:27)
[2019-07-06] MEDS ORDERED: LIDOCAINE 0.5% (PF) 5 MG/ML (50 ML SDV) SQ PRN (17:36)
[2019-07-06] MEDS ORDERED: METHYLERGONOVINE 0.2 MG/ML 1 ML AMP IM PRN (17:36)
[2019-07-06] MEDS ORDERED: TERBUTALINE 1 MG/ML VIAL SQ PRN (17:36)
[2019-07-06] MEDS ORDERED: OXYTOCIN 10 UNIT/ML 1 ML VIAL IM PRN (17:36)
[2019-07-06] MEDS ORDERED: CARBOPROST TROMETHAMINE 250 MCG/ML 1 ML AMP IM PRN (17:36)
[2019-07-06] MEDS ORDERED: LACTATED RINGERS 1,000 ML IV SCH (17:45)
[2019-07-06] MEDS ORDERED: OXYTOCIN 30 UNITS/500 ML NS 30 UNIT in SALINE 1 500ML.BAG IV SCH (17:45)
[2019-07-06] MEDS: INSULIN ASPART (NovoLOG) 100 UNIT/ML VIAL SQ SCH ×2 (17:52→22:00)
--- NOTE | 2019-07-06 17:52 | P.PN ---
Progress Note - Text Progress Note Date: 07/06/19 Sil seen and evaluated this evening. She is doing very well. Her pain is well-controlled. She is ambulating. We'll plan to remove Hutchinson soon and continue with ambulation. She is tolerating her diet. We did review surgical findings and all questions were answered for her at this time. It is noted that multiple orders were placed incorrectly on this patient they have been discontinued as the prolonged on another chart.
[2019-07-06] MEDS: metFORMIN 500 MG TAB PO SCH (20:52)
[2019-07-06] MEDS: SENNOSIDES-DOCUSATE SODIUM 1 EACH TAB PO SCH (20:52)
[2019-07-06] MEDS ORDERED: ATORVASTATIN 80 MG TAB PO SCH (21:00)
[2019-07-06] MEDS ORDERED: LINAGLIPTIN 5 MG TABLET PO SCH (21:00)
[2019-07-06] MEDS ORDERED: NON FORMULARY DRUG (Sitagliptin Phos/Metformin Hcl [Janumet 50-1,000 Mg Tablet] 1 TAB) PO SCH (21:00)
[2019-07-06 21:06] VITALS: RESP 16
[2019-07-06 22:02] LABS: Glucose,Whole Blood 274 mg/dL (75-99)
[2019-07-07 04:46] VITALS: PULSE 74
[2019-07-07] MEDS: KETOROLAC 30 MG/ML 1 ML VIAL IVP PRN (05:06)
[2019-07-07] MEDS ORDERED: PANTOPRAZOLE 40 MG TABLET PO SCH (07:30)
[2019-07-07 07:52] LABS: Glucose,Whole Blood 200 mg/dL (75-99)
[2019-07-07] MEDS: INSULIN ASPART (NovoLOG) 100 UNIT/ML VIAL SQ SCH (07:52)
[2019-07-07 07:58] LABS: Basophils # (A) 0.1 k/uL (0-0.2); Basophils % (A) 1 %; Eosinophils # (A) 0.1 k/uL (0-0.7); Eosinophils % (A) 1 %; HCT 40.6 % (34.0-46.0); Lymphocytes # (A) 3.6 k/uL (1.0-4.8); Lymphocytes % (A) 20 %; MCH 30.6 pg (25.0-35.0); MCHC 33.5 g/dL (31.0-37.0); MCV 91.3 fL (80.0-100.0); Monocytes # (A) 0.8 k/uL (0-1.0); Monocytes % (A) 5 %; Neutrophils # (A) 12.7 k/uL (1.3-7.7); Neutrophils % (A) 71 %; Platelet Count 272 k/uL (150-450); RBC 4.45 m/uL (3.80-5.40); RDW 13.9 % (11.5-15.5); WBC 17.7 k/uL (3.8-10.6)
[2019-07-07 08:04] LABS: HGB 13.6 gm/dL (11.4-16.0)
--- NOTE | 2019-07-07 08:32 | P.DS ---
Providers Date of admission: 07/06/19 23:59 Expected date of discharge: 07/07/19 Attending physician: Damon Mcfarlane Consults: 07/06/19 17:28 Consult Physician Urgent Consulting Provider: Seb Trevino Consult Reason/Comments: medical managment Do you want consulting provider notified?: Yes Primary care physician: Marni Hearn [facility] Course: Overall done is doing very well postop day 1. She is involuting, voiding and tolerating her diet. She has passed flatus and has had a bowel movement. She is requesting discharge home today. Vital signs are stable and afebrile. Heart regular, lungs clear, extremities without pain. Abdomen soft positive bowel sounds are noted in her incisions are intact. She is having some blood sugar issues this morning and last night were awaiting medicine consultation. Once medicine sees her call for she'll be cleared for discharge and we can discharge her to home. She is a known diabetic and her sugars so far been in the 200s, but she did just have surgery and this is likely part of the issue with regard to her blood glucose control. I suspect when she is home this will be much more easily managed as she has been diabetic for a while and understands control of her sugars. All the questions were answered for her and discharge instruction were thoroughly reviewed including but not limited to no heavy lifting or driving, limit stairs, and especially pelvic rest and nothing in the vagina for approximately 8 weeks as that vaginal cuff needs to heal. She is aware to call the office for any high temperatures, heavy bleeding, or severe pain or other issues or concerns. Patient Condition at Discharge: Good Plan - Discharge Summary Discharge Rx Participant: Yes New Discharge Prescriptions: New Ibuprofen [Motrin] 600 mg PO Q6HR PRN #30 tab PRN Reason: Pain HYDROcodone/APAP 5-325MG [[place] 5-325] 1 tab PO Q4HR PRN #30 tab PRN Reason: Pain No Action Citalopram Hydrobromide [CeleXA] 40 mg PO DAILY Lisinopril [Zestril] 10 mg PO DAILY Omeprazole 40 mg PO DAILY sitaGLIPtin PHOS/metFORMIN HCL [Janumet 50-1,000 mg Tablet] 1 tab PO BID Aspirin EC [Ecotrin Low Dose] 81 mg PO DAILY Atorvastatin [Lipitor] 80 mg PO HS Insulin Glargine,Hum.rec.anlog [Basaglar Kwikpen U-100] 22 unit SQ HS PRN PRN Reason: BLOOD SUGAR OVER 150 AT HS [place]-3 Fatty Acids/Fish Oil [Fish Oil 1,000 mg Softgel] 1 each PO DAILY Cholecalciferol (Vitamin D3) [Vitamin D3] 2,000 unit PO DAILY Ertugliflozin Pidolate [Steglatro] 15 mg PO DAILY Nicotine 21Mg/24Hr Patch [Habitrol] 21 mg TRANSDERM DAILY Discharge Medication List Citalopram Hydrobromide [CeleXA] 40 mg PO DAILY 07/20/17 [History] Lisinopril [Zestril] 10 mg PO DAILY 07/20/17 [History] Omeprazole 40 mg PO DAILY 07/20/17 [History] Aspirin EC [Ecotrin Low Dose] 81 mg PO DAILY 09/06/18 [History] Atorvastatin [Lipitor] 80 mg PO HS 09/06/18 [History] Insulin Glargine,Hum.rec.anlog [Basaglar Kwikpen U-100] 22 unit SQ HS PRN 09/06/18 [History] sitaGLIPtin PHOS/metFORMIN HCL [Janumet 50-1,000 mg Tablet] 1 tab PO BID 09/06/18 [History] Cholecalciferol (Vitamin D3) [Vitamin D3] 2,000 unit PO DAILY 06/28/19 [History] Ertugliflozin Pidolate [Steglatro] 15 mg PO DAILY 06/28/19 [History] [place]-3 Fatty Acids/Fish Oil [Fish Oil 1,000 mg Softgel] 1 each PO DAILY 06/28/19 [History] Nicotine 21Mg/24Hr Patch [Habitrol] 21 mg TRANSDERM DAILY 07/06/19 [History] HYDROcodone/APAP 5-325MG [[place] 5-325] 1 tab PO Q4HR PRN #30 tab 07/07/19 [Rx] Ibuprofen [Motrin] 600 mg PO Q6HR PRN #30 tab 07/07/19 [Rx] Follow up Appointment(s)/Referral(s): Damon Mcfarlane DO [Doctor of Osteopathic Medicine] - 2 Weeks Activity/Diet/Wound Care/Special Instructions: No heavy lifting, limit stairs and driving, and pelvic rest. If any high temperatures, heavy bleeding, or severe pain call my office Discharge Disposition: HOME SELF-CARE
[2019-07-07] MEDS ORDERED: NICOTINE 21MG/24HR PATCH TRANSDERM SCH (09:00)
[2019-07-07] MEDS ORDERED: LISINOPRIL 10 MG TAB PO SCH (09:00)
[2019-07-07] MEDS ORDERED: CITALOPRAM HYDROBROMIDE 20 MG TAB PO SCH (09:00)
[2019-07-07] MEDS ORDERED: ERTUGLIFLOZIN PIDOLATE 15 MG PO SCH ×2 (09:00)
[2019-07-07] MEDS: metFORMIN 500 MG TAB PO SCH (09:20)
[2019-07-07 10:37] VITALS: BP 131/74; TEMP 98.4
[2019-07-07] MEDS: SENNOSIDES-DOCUSATE SODIUM 1 EACH TAB PO SCH (10:40)
[2019-07-07 12:12] LABS: Glucose,Whole Blood 185 mg/dL (75-99)
--- NOTE | 2019-07-07 13:29 | P.CONS ---
History of Present Illness - History of Present Illness This is a pleasant 49 years old female with past medical history of diabetes mellitus, GERD, hyperlipidemia, hypertension, osteoarthritis, depression and anxiety. Medical consult was requested for medical management and specifically regarding her hyperglycemia and diabetes medication on discharge she was admitted for dysfunctional uterine bleeding/fibroid uterus. She unde rwent hysterectomy. Today is postoperative day #1 Vitas looks stable and patient is afebrile. Labs from today showed leukocytosis of 17.7 K, mostly reactive as patient does not have overt signs symptoms of infection Blood sugar was reviewed, it was running between 163-27 . Her sugar now is 200 and 185 this morning. Patient confirmed to me that she takes Janumet at home and also she takes insuli n at night as 28 units and that she was taking it every night for example for the week before coming to the hospital, however it looks like when she came in to the hospital by mistake she was prescribed 22 units only. Also patient states that she can check her sugar 4 times a day before each meal and bedtime and she is willing to take the numbers to her doctor as instructed Review of Systems CONSTITUTIONAL: No fever, no malaise, no fatigue. HEENT: No recent visual problems or hearing problems. Denied any sore throat. CARDIOVASCULAR: No orthopnea, PND, no palpitations, no syncope. PULMONARY: No shortness of breath, no cough, no hemoptysis. GASTROINTESTINAL: No diarrhea, no nausea, no vomiting, no abdominal pain. Normoactive bowel sounds. NEUROLOGICAL: No headaches, no weakness, no numbness. HEMATOLOGICAL: Denies any bleeding or petechiae. GENITOURINARY: Denies any burning micturition, frequency, or urgency. MUSCULOSKELETAL/RHEUMATOLOGICAL: Denies any joint pain, swelling, or any muscle pain. ENDOCRINE: Denies any polyuria or polydipsia. Past Medical History Past Medical History: Diabetes Mellitus, GERD/Reflux, Hyperlipidemia, Hypertension, Osteoarthritis (OA) Additional Past Medical History / Comment(s): Cox"s DISEASE , History of Any Multi-Drug Resistant Organisms: None Reported Past Surgical History: Section, Cholecystectomy, Heart Catheterization, Tubal Ligation, Uterine Ablation Additional Past Surgical History / Comment(s): Section X2. Past Anesthesia/Blood Transfusion Reactions: Family History of Problems w/ Anesthesia Additional Past Anesthesia/Blood Transfusion Reaction / Comm: Mother with PONV. Smoking Status: Light tobacco smoker - Past Family History Mother History Unknown: Yes Family Medical History: AFIB Father History Unknown: Yes Family Medical History: Myocardial Infarction ([place]) Brother(s) History Unknown: Yes Family Medical History: Myocardial Infarction ([place]) Medications and Allergies Home Medications Medication Instructions Recorded Confirmed Type Citalopram Hydrobromide [CeleXA] 40 mg PO DAILY 07/20/17 07/06/19 History Lisinopril [Zestril] 10 mg PO DAILY 07/20/17 07/06/19 History Omeprazole 40 mg PO DAILY 07/20/17 07/06/19 History Aspirin EC [Ecotrin Low Dose] 81 mg PO DAILY 09/06/18 06/28/19 History Atorvastatin [Lipitor] 80 mg PO HS 09/06/18 07/06/19 History Insulin Glargine,Hum.rec.anlog 22 unit SQ HS PRN 09/06/18 07/06/19 History [Sarthak Philip U-100] sitaGLIPtin PHOS/metFORMIN HCL 1 tab PO BID 09/06/18 07/06/19 History [Janumet 50-1,000 mg Tablet] Cholecalciferol (Vitamin D3) 2,000 unit PO DAILY 06/28/19 06/28/19 History [Vitamin D3] Ertugliflozin Pidolate [Steglatro] 15 mg PO DAILY 06/28/19 07/06/19 History [place]-3 Fatty Acids/Fish Oil [Fish 1 each PO DAILY 06/28/19 06/28/19 History Oil 1,000 mg Softgel] Nicotine 21Mg/24Hr Patch [Habitrol] 21 mg TRANSDERM DAILY 07/06/19 07/06/19 History HYDROcodone/APAP 5-325MG [[place] 1 tab PO Q4HR PRN #30 tab 07/07/19 Rx 5-325] Ibuprofen [Motrin] 600 mg PO Q6HR PRN #30 tab 07/07/19 Rx Allergies Allergy/AdvReac Type Severity Reaction Status Date / Time mold Allergy SNEEZING,COUGHING, Verified 07/06/19 08:21 ITCHY EYES Physical Exam Vitals: Vital Signs Temp Pulse Pulse Resp BP Pulse Ox 07/07/19 08:00 98.4 F 74 16 131/74 98 07/07/19 04:00 98.3 F 74 16 127/76 95 07/06/19 23:41 99.3 F 72 16 123/76 07/06/19 20:00 99.2 F 95 16 131/78 98 07/06/19 15:15 86 20 134/82 94 L 07/06/19 14:45 87 20 133/86 95 07/06/19 14:15 86 20 124/76 95 07/06/19 13:45 91 20 118/70 96 07/06/19 13:15 90 18 122/72 92 L 07/06/19 13:00 94 18 120/81 93 L 07/06/19 12:45 96 18 117/77 93 L 07/06/19 12:30 98.6 F 86 20 117/77 92 L Intake and Output 07/06/19 07/07/19 07/07/19 22:59 06:59 14:59 Intake Total 360 Output Total 1400 300 Balance -1040 -300 Intake: Oral 360 Output: Urine 1400 300 Uretheral (Hutchinson) 1200 Other: # Voids 1 2 GENERAL: The patient is alert and oriented x3, not in any acute distress. Well developed, well nourished. HEENT: Pupils are round and equally reacting to light. EOMI. No scleral icterus. No conjunctival pallor. Normocephalic, atraumatic. No pharyngeal erythema. No thyromegaly. CARDIOVASCULAR: S1 and S2 present. No murmurs, rubs, or gallops. PULMONARY: Chest is clear to auscultation, no wheezing or crackles. ABDOMEN: Soft, nontender, nondistended, normoactive bowel sounds. No palpable organomegaly. MUSCULOSKELETAL: No joint swelling or deformity. EXTREMITIES: No cyanosis, clubbing, or pedal edema. NEUROLOGICAL: Gross neurological examination did not reveal any focal deficits. SKIN: No rashes. No petechiae -Gynecological exam: Deferred to the primary surgical team Results CBC & Chem 7: 07/07/19 06:47 Labs: Abnormal Lab Results - Last 24 Hours (Table) 07/06/19 07/06/19 07/07/19 Range/Units 17:07 21:56 06:47 WBC 17.7 H (3.8-10.6) k/uL Neutrophils # 12.7 H (1.3-7.7) k/uL POC Glucose (mg/dL) 266 H 274 H (75-99) mg/dL 07/07/19 07/07/19 Range/Units 07:50 12:10 WBC (3.8-10.6) k/uL Neutrophils # (1.3-7.7) k/uL POC Glucose (mg/dL) 200 H 185 H (75-99) mg/dL Assessment and Plan Assessment: Dysfunctional uterine bleeding, status post hysterectomy Diabetes mellitus, with hyperglycemia Leukocytosis, mostly reactive Hypertension Hyperlipidemia Osteoarthritis Breasts disease History of depression and anxiety, not active tissue. Plan: This is a pleasant 49 years old female who presents for hysterectomy for her DUB, also she is diabetic with hyperglycemia. We recommend close monitoring of her white cell count. Most likely patient transient hyperglycemia more than usual is reduced stress regarding her surgery, we expect her sugar to come down on the common a few days. Recommend patient to keep checking her sugar 4 times a day before each meals and at bedtime, and to at her to diabetic diet. Also we instructed the patient to resume her home dose of insulin 28 units instead of 22 units which also might be contributed to her sugar level while she is in the hospital. Patient agrees with this recommendation and she is going to resume her medication and check her sugar as instructed 4 times a day, keep it in a book and anchored to her PCP Dr. Hearn Also patient was instructed about her white cell count and recommended that she follow up closely with her doctor's regarding this and she verbalized understanding and agreement postop management including pain and DVT prophylaxis as per primary surgery team.Labs and medication were reviewed.. Continue same treatment. Continue with symptomatic treatment. Resume home medication. Monitor lytes and vitals. DVT and GI prophylaxis. Further recommendations of the clinical course of the patient We recommend patient follow up with her PCP in one week and patient was instructed with the same Patient is medically stable The whole encounter including instructions is done in the presents of bedside nurse which was present all the time. Discussed with the nurse about the recommendations Thank you for consulting us, please feel free to contact us for any further question
== END 2019-07-07 12:40 | disposition home or self-care (01) ==
LOC: OR 07:27 → 4FBP 11:18 → OR 23:59
PROVIDERS: ADMIT Obstetrics & Gynecology; ATTEND Obstetrics & Gynecology
DX: D25.9 Leiomyoma of uterus, unspecified (principal); N80.0 Endometriosis of uterus; N73.6 Female pelvic peritoneal adhesions (postinfective); N83.202 Unspecified ovarian cyst, left side; D72.829 Elevated white blood cell count, unspecified; E11.65 Type 2 diabetes mellitus with hyperglycemia; I10 Essential (primary) hypertension; E78.5 Hyperlipidemia, unspecified; M19.90 Unspecified osteoarthritis, unspecified site; N64.9 Disorder of breast, unspecified; F32.9 Major depressive disorder, single episode, unspecified; F41.9 Anxiety disorder, unspecified; K21.9 Gastro-esophageal reflux disease without esophagitis; K22.70 Barrett's esophagus without dysplasia; F17.200 Nicotine dependence, unspecified, uncomplicated; Z98.890 Other specified postprocedural states; Z90.49 Acquired absence of other specified parts of digestive tract; Z98.51 Tubal ligation status; Z84.89 Family history of other specified conditions; Z82.49 Family history of ischemic heart disease and other diseases of the circulatory system; Z79.899 Other long term (current) drug therapy; Z79.82 Long term (current) use of aspirin; Z79.4 Long term (current) use of insulin; Z91.09 Other allergy status, other than to drugs and biological substances; Z97.2 Presence of dental prosthetic device (complete) (partial)
CPT/HCPCS: 49322; 58552; S2900; 81025; 85025; 86850; 86900; 86901; 88307